=== PATIENT | female | born 1965 | race African-American/Black ===

== ENCOUNTER 2024-09-20 14:06 | Emergency (ER) | payer MEDICAID ==
[~2024-09-20] VITALS: Ht 177.8 cm; Wt 90.0 kg
[2024-09-20 14:12] VITALS: O2SAT 100
[2024-09-20] MEDS: SODIUM CHLORIDE 0.9% 1,000 ML IV ONE (15:32)
[2024-09-20 15:36] LABS: BASOPHILS % 1.0 % (0.0-2.0); EOSINOPHILS % 0.6 % (0.0-5.0); HEMATOCRIT. 39.3 % (36.0-48.0); HEMOGLOBIN. 13.3 g/dL (12.0-16.0); LYMPHOCYTES % 28.1 % (20.0-50.0); MEAN PLATELET VOLUME 8.7 fl (7.4-10.4); MONOCYTES % 5.0 % (2.0-8.0); NEUTROPHILS % 65.3 % (40.0-76.0); PLATELET 207 x1000/uL (130-400); RED BLOOD CELL COUNT 4.33 mill/uL (4.2-5.4); RED CELL DISTRIBUTION WIDTH 13.8 % (11.6-14.6)
[2024-09-20 15:37] LABS: CLARITY URINE CLEAR (CLEAR); COLOR URINE YELLOW (YELLOW); GLUCOSE URINE 3+ (NEGATIVE); KETONES URINE NEGATIVE (NEGATIVE); LEUKOCYTE ESTERASE URINE NEGATIVE (NEGATIVE); NITRITE URINE NEGATIVE (NEGATIVE); OCCULT BLOOD URINE NEGATIVE (NEGATIVE); PH URINE 6.5 (4.5-8.0); PROTEIN URINE NEGATIVE (NEGATIVE); SPECIFIC GRAVITY URINE 1.038 (1.005-1.030); UROBILINOGEN URINE 0.2 E.U./dL (0.2-1.0)
[2024-09-20 15:46] LABS: INR 1.0
[2024-09-20 15:51] LABS: CREATININE 0.9 mg/dL (0.6-1.0); UREA NITROGEN BLOOD 9 mg/dL (9-23)
[2024-09-20 15:53] LABS: ASPARTATE AMINOTRANSFERASE 50 IU/L (<34); BILIRUBIN DIRECT 0.1 mg/dL (<=3.0); TROPONIN I HIGH SENSITIVITY 10 ng/L (3.0-34)
[2024-09-20 15:54] LABS: BILIRUBIN TOTAL 0.3 mg/dL (0.1-1.0); PROTEIN TOTAL 6.3 g/dL (6.0-8.3)
[2024-09-20 16:20] LABS: BACTERIA URINE NONE SEEN; RBC URINE NONE SEEN /hpf (0-2); SQUAMOUS EPITHELIAL CELL URINE NONE SEEN /lpf (RARE/1+); WBC URINE NONE SEEN /hpf (0-2)
[2024-09-20] MEDS: HYDROCODONE/ACETAMINOPHEN 5/325MG TABLET PO SCH (16:46)
[2024-09-20 20:26] LABS: TROPONIN I HIGH SENSITIVITY 12 ng/L (3.0-34)
[2024-09-20 21:11] VITALS: BP 152/79; PULSE 92; RESP 18; TEMP 36.8; O2SAT 98
== END 2024-09-20 21:15 | disposition home or self-care (01) ==
LOC: ER 14:06
DX: M79.89 Other specified soft tissue disorders (principal); E11.65 Type 2 diabetes mellitus with hyperglycemia; I10 Essential (primary) hypertension; E78.5 Hyperlipidemia, unspecified; F17.200 Nicotine dependence, unspecified, uncomplicated
CPT/HCPCS: 80076; 80048; 81003; 82010; 82962; 83880; 83690; 83930; 85025; 85610; 84484; 36415; 71045; 93970; 93005; 96360; 99285; J7030; Z7610 ×2; A4606

== ENCOUNTER 2024-11-30 08:35 | Inpatient (IN) | payer MEDICAID ==
[~2024-11-30] VITALS: Ht 188 cm; Wt 115.7 kg
[2024-11-30 08:36] VITALS: O2SAT 100
[2024-11-30 09:11] LABS: BASOPHILS % 0.8 % (0.0-2.0); EOSINOPHILS % 1.4 % (0.0-5.0); HEMATOCRIT. 42.5 % (36.0-48.0); HEMOGLOBIN. 14.2 g/dL (12.0-16.0); LYMPHOCYTES % 20.9 % (20.0-50.0); MEAN PLATELET VOLUME 8.9 fl (7.4-10.4); MONOCYTES % 5.6 % (2.0-8.0); NEUTROPHILS % 71.3 % (40.0-76.0); PLATELET 134 x1000/uL (130-400); RED BLOOD CELL COUNT 4.57 mill/uL (4.2-5.4); RED CELL DISTRIBUTION WIDTH 14.0 % (11.6-14.6)
[2024-11-30 09:25] LABS: CREATININE 0.8 mg/dL (0.6-1.0); TROPONIN I HIGH SENSITIVITY 13 ng/L (3.0-34); UREA NITROGEN BLOOD 6 mg/dL (9-23)
[2024-11-30] MEDS ORDERED: CHLORDIAZEPOXIDE 25MG CAPSULE PO ONE (11:00)
[2024-11-30] MEDS: CHLORDIAZEPOXIDE 25MG CAPSULE PO SCH ×2 (11:46→15:36)
[2024-11-30] MEDS: POTASSIUM CHLORIDE 20MEQ/PACKET PO ONE (11:46)
[2024-11-30] MEDS: LORAZEPAM 2MG/ML UD SYRINGE IV SCH (11:56)
[2024-11-30 13:02] VITALS: BP 167/92; PULSE 98; RESP 20; TEMP 36.1; O2SAT 99
[2024-11-30] MEDS ORDERED: DEXTROSE 50% WATER 50ML SYRINGE IV PRN (13:45)
[2024-11-30] MEDS: AMLODIPINE 10MG TABLET PO SCH (14:00)
[2024-11-30 14:16] VITALS: BP 164/78; PULSE 77; RESP 18; TEMP 36.4736
[2024-11-30] MEDS ORDERED: [UNRECOGNIZED DRUG - CODE] (14:57)
[2024-11-30] MEDS ORDERED: SITA100T11 PO (14:57)
[2024-11-30] MEDS ORDERED: THIA100T88 PO (14:57)
[2024-11-30] MEDS ORDERED: FOLI-43 PO (14:57)
[2024-11-30] MEDS ORDERED: INSU100I24 SUBCUT (14:57)
[2024-11-30] MEDS ORDERED: BLOO-1657 XX (14:57)
[2024-11-30] MEDS ORDERED: PRAV20TA57 PO (14:57)
[2024-11-30] MEDS ORDERED: LOSA100T33 PO (14:57)
[2024-11-30] MEDS ORDERED: [UNRECOGNIZED DRUG - CODE] TP (14:57)
[2024-11-30] MEDS ORDERED: LOSA50TA41 PO (14:57)
[2024-11-30] MEDS ORDERED: INSU100I95 (14:57)
[2024-11-30] MEDS ORDERED: METF-416 PO (14:57)
[2024-11-30] MEDS ORDERED: AMLO5TAB88 PO (14:57)
[2024-11-30] MEDS ORDERED: LORA10TA7 PO (14:57)
[2024-11-30] MEDS ORDERED: ADVAIR (14:57)
[2024-11-30 16:00] VITALS: BP 149/86; PULSE 112; RESP 20; TEMP 36.2; O2SAT 100
[2024-11-30] MEDS: NICOTINE 14MG PATCH TD SCH (17:38)
[2024-11-30] MEDS: BLOOD SUGAR DIAGNOSTIC STRIP TEST SCH (17:40)
[2024-11-30] MEDS: INSULIN LISPRO 100 UNITS/ML SUBCUT SCH (18:28)
[2024-11-30 20:00] VITALS: BP 144/76; PULSE 103; RESP 20; TEMP 36.6; O2SAT 98
[2024-11-30] MEDS: LORAZEPAM 1MG TABLET PO PRN (23:03)
[2024-12-01] VITALS (8 sets, daily range): BP systolic 110–170; BP diastolic 62–108; PULSE 77–109; RESP 18–20; TEMP 35.8–36.9; O2SAT 96–99
[2024-12-01] MEDS: ONDANSETRON HCL 4MG/2ML INJ IV PRN (05:37)
[2024-12-01 06:45] LABS: CREATININE 0.8 mg/dL (0.6-1.0)
[2024-12-01 06:46] LABS: UREA NITROGEN BLOOD 8 mg/dL (9-23)
[2024-12-01] MEDS: NICOTINE 21MG PATCH TD SCH (09:21)
[2024-12-01] MEDS ORDERED: NICO-789 TD (12:38)
[2024-12-01] MEDS ORDERED: AMLO10TA80 PO (12:38)
[2024-12-01] MEDS ORDERED: INSU100I28 SQ (12:38)
[2024-12-01] MEDS: INSULIN GLARGINE 100 UNITS/ML SUBCUT SCH (13:33)
[2024-12-01] MEDS: POTASSIUM CHLORIDE 20MEQ TABLET SR PO SCH (13:34)
[2024-12-01 15:19] LABS: *AMPHETAMINES SCREEN URINE NEGATIVE (NEGATIVE); *BENZODIAZEPINES SCREEN URINE PRESUMPTIVE POSITIVE (NEGATIVE)
[2024-12-01 15:20] LABS: *BARBITURATES SCREEN URINE NEGATIVE (NEGATIVE); *COCAINE SCREEN URINE NEGATIVE (NEGATIVE); METHADONE URINE SCREEN NEGATIVE (NEGATIVE); OPIATES URINE SCREEN NEGATIVE (NEGATIVE)
[2024-12-01 15:21] LABS: CANNABINOID URINE SCREEN NEGATIVE (NEGATIVE); ECSTASY MDMA SCREEN URINE NEGATIVE (NEGATIVE); PHENCYCLIDINE URINE SCREEN NEGATIVE (NEGATIVE)
[2024-12-02] VITALS: BP 160/86; PULSE 100; RESP 18; TEMP 36.6; O2SAT 97
[2024-12-02] MEDS: ACETAMINOPHEN 325MG TABLET PO PRN (03:20)
[2024-12-02 04:00] VITALS: BP 153/81; PULSE 83; RESP 18; TEMP 36.4; O2SAT 98
[2024-12-02 08:00] VITALS: BP 154/75; PULSE 94; RESP 20; TEMP 36.6; O2SAT 100
== END 2024-12-02 09:15 | disposition home or self-care (01) | DRG 420 ==
LOC: ER 08:39 → 7WST 11:02 → EDBEDREQTM 11:06 → EDBEDREQ 11:06 → ENRESERV 12:23
PROVIDERS: ADMIT Internal Medicine; ATTEND Internal Medicine
DX: E11.65 Type 2 diabetes mellitus with hyperglycemia (principal); E87.6 Hypokalemia; F10.139 Alcohol abuse with withdrawal, unspecified; I10 Essential (primary) hypertension; R25.1 Tremor, unspecified; R20.0 Anesthesia of skin
CPT/HCPCS: 36415; 71045; 80048; 80305; 82962; 83036; 83735; 84484; 85025; 99285; J1815; J2060; J2405